=== PATIENT | female | born 1970 | race Caucasian/White ===

== ENCOUNTER 2018-02-09 10:18 | Emergency (ER) | payer BC ==
[~2018-02-09] VITALS: Ht 157.5 cm; Wt 68.9 kg
--- NOTE | 2018-02-09 10:32 | NUR ---
PT IS IN ROOM #2B. DR CROSS EVALUATED THE PT.
[2018-02-09 12:00] LABS: *BILIRUBIN,URIN NEGATIVE (NEGATIVE); *BLOOD, URINE NEGATIVE (NEGATIVE); *CLARITY,URINE CLEAR (CLEAR); *COLOR,URINE YELLOW (YELLOW); *KETONES,URINE NEGATIVE (NEGATIVE); *PROTEIN,URINE NEGATIVE (NEGATIVE); *UROBILINOGEN,URINE 0.2 E.U./dl (NORMAL); LEUKOCYTE ESTERASE ,URINE TRACE (NEGATIVE); NITRITE, URINE NEGATIVE (NEGATIVE); PH,URINE 6.5 (5.0-8.0); UGLUCOSE NEGATIVE (NEGATIVE)
[2018-02-09 12:04] LABS: BACTERIA,URINE MODERATE /HPF (NONE SEEN); RBC,URINE 0-3 /HPF (0-3); SQUAMOUS EPITHELIAL CELL,UR MANY /HPF (NONE SEEN)
[2018-02-09] MEDS ORDERED: SULFAMETH/TRIMETH 800/160 MG TABLET PO ONE (12:15)
[2018-02-09] MEDS ORDERED: SULFAMETH/TRIMETH 800/160 MG TABLET ONE (12:21)
--- NOTE | 2018-02-09 12:24 | NUR ---
PT WAS D/C TO HOME. D/C INSTRUCTIONS GIVEN TO THE PT.
[2018-02-09 12:25] VITALS: BP 131/69
== END 2018-02-09 12:26 | disposition home or self-care (01) ==
LOC: ER 10:18
DX: Z98.890 Other specified postprocedural states (principal)
CPT/HCPCS: 70450; A4663